=== PATIENT | male | born 1970 | race Caucasian/White ===

== ENCOUNTER 2020-06-12 18:29 | Emergency (ER) | payer SELFPAY ==
[2020-06-12] MEDS ORDERED: Fluorescein Opthalmic Strip ONE (18:41)
[2020-06-12] MEDS ORDERED: Tetracaine 0.5% OPHTH SOLN/PF 4 ML BOT ONE (18:41)
== END 2020-06-12 19:29 | disposition home or self-care (01) ==
LOC: BURERS 18:29
DX: S00.212A Abrasion of left eyelid and periocular area, initial encounter (principal); F17.210 Nicotine dependence, cigarettes, uncomplicated; W22.8XXA Striking against or struck by other objects, initial encounter
CPT/HCPCS: 99283

== ENCOUNTER 2021-08-12 15:43 | Emergency (ER) | payer OTHER, SELFPAY ==
[2021-08-12] MEDS ORDERED: Lidocaine 1% w/Epinephrine 1:100K 20 ML VIAL ONE (16:14)
[2021-08-12] MEDS ORDERED: Sulfameth/Trimethoprim DS 800-160mg TAB ONE (16:47)
== END 2021-08-12 16:50 | disposition home or self-care (01) ==
LOC: BURERS 15:43
DX: S81.811A Laceration without foreign body, right lower leg, initial encounter (principal); F17.210 Nicotine dependence, cigarettes, uncomplicated; W26.9XXA Contact with unspecified sharp object(s), initial encounter
CPT/HCPCS: 12002

== ENCOUNTER 2024-11-04 16:41 | Emergency (ER) | payer OTHER, SELFPAY ==
[2024-11-04] MEDS ORDERED: Lidocaine 1% PF 5 ML VIAL ONE ×2 (16:47→17:49)
== END 2024-11-04 18:29 | disposition home or self-care (01) ==
LOC: BURERS 16:41
DX: S61.210A Laceration without foreign body of right index finger without damage to nail, initial encounter (principal); F17.210 Nicotine dependence, cigarettes, uncomplicated; W31.89XA Contact with other specified machinery, initial encounter
CPT/HCPCS: 12002; 99283